=== PATIENT | male | born 2000 | race Caucasian/White ===

== ENCOUNTER → 2020-12-29 | Outpatient (CLI) | payer OTHER ==
--- NOTE | 2020-12-29 10:44 | REP ---
INDICATION: INTERSTITIAL EMPHYSEMA COMPARISON: None. TECHNIQUE: PA and lateral. FINDINGS: The mediastinum and cardiac silhouette are normal. The lung rubio are clear and without acute consolidation, effusion, or pneumothorax. The skeletal structures are intact and normal. IMPRESSION: No acute cardiopulmonary process. <Electronically signed by Ceasar Law > 12/29/20 [id number]
== END ==
LOC: M PLAIMG 10:04
PROVIDERS: ATTEND Thoracic Surgery (Cardiothoracic Vascular Surgery)
DX: J98.2 Interstitial emphysema (principal); Z72.0 Tobacco use

== ENCOUNTER → 2021-01-05 | Outpatient (CLI) | payer OTHER ==
[~2021-01-05] MED LIST: ISOVUE-370 76% 100ML VIAL ONE
--- NOTE | 2021-01-06 14:09 | REP ---
INDICATION: INTERSTITIAL EMPHYSEMA. COMPARISON: None. TECHNIQUE: Imaging protocol: Computed tomography of the chest with IV contrast. Contiguous 3 mm thick axial projection images were obtained through the chest. 2D sagittal and coronal reconstructions were performed. Radiation optimization: All CT scans at this facility use at least one of these dose optimization techniques: automated exposure control; mA and/or kV adjustment per patient size (includes targeted exams where dose is matched to clinical indication); or iterative reconstruction. CONTRAST: 75 cc Isovue 370 IV FINDINGS: Lower neck: The thyroid gland is normal. There is no supraclavicular lymphadenopathy. Mediastinum: No abnormal masses or lymphadenopathy. There is normal thymic tissue in the anterior mediastinum. Heart/thoracic aorta: The heart size is normal. There is no pericardial effusion. The thoracic aorta is normal. There is no evidence of thoracic aortic aneurysm or aortic dissection. Upper abdomen: Limited images of the upper abdomen are unremarkable. Thoracic esophagus: Normal. Chest wall and axilla: The soft tissues of the chest wall appear unremarkable. There is no axillary lymphadenopathy. There are no significant bony abnormalities of the chest. Lung parenchyma: The lungs are clear. There are no pulmonary nodules or masses. There is no significant interstitial or alveolar lung disease. There are no pleural effusions. IMPRESSION: Normal CT of the chest with IV contrast. <Electronically signed by Ramesh Munoz > 01/06/21 [id number]
== END ==
LOC: M PLAIMG 10:25
PROVIDERS: ATTEND Thoracic Surgery (Cardiothoracic Vascular Surgery)
DX: J98.2 Interstitial emphysema (principal)
CPT/HCPCS: 71260; Q9967

== ENCOUNTER → 2021-01-24 | Outpatient (CLI) | payer OTHER | LOC: M PLALAB 10:01 | PROVIDERS: ATTEND Thoracic Surgery (Cardiothoracic Vascular Surgery) | DX: J98.2 Interstitial emphysema (principal) ==

== ENCOUNTER → 2021-02-16 | Outpatient (CLI) | payer OTHER ==
--- NOTE | 2021-02-16 13:22 | PFTRPT ---
Height: 62.00 Inches Weight: 130.00 Lbs BSA: 1.59 Diagnosis: J98.2 DATE: 02/16/2021 ORDERING PHYSICIAN: ELIOT MARIA MD Pre and post bronchodilator studies have excellent technical quality. Some mild difficulty with effort is suspected. Forced vital capacity is normal. FEV1 is just out of proportion. Obstructive index is therefore reduced. Expiratory limit of the flow-volume loop does raise a question of effort. No significant bronchodilator response is identified. Total lung capacity is normal. Residual volume is in proportion. Diffusing capacity is normal. Hemoglobin is acceptable at 14.5. Airway resistance and conductance are normal. IMPRESSION: Cannot rule out a degree of airway dysfunction but suboptimal effort is suspected. Please correlate clinically. MTDD
== END ==
LOC: M CARPUL 12:45
PROVIDERS: ATTEND Thoracic Surgery (Cardiothoracic Vascular Surgery)
DX: J98.2 Interstitial emphysema (principal)